=== PATIENT | female | born 1995 | race Caucasian/White ===

== ENCOUNTER 2018-08-05 15:15 | Outpatient (RCR) | payer BC ==
[~2018-08-05 15:15] MED LIST: DUO-KAPS1 CAP PO; FLEXERIL 1010 MG/TAB PO; LORTAB 5/500 501 TAB PO; NAPROSYN500 MG PO
== END 2018-08-24 | disposition home or self-care (01) ==
LOC: MKS.ESL.PT
DX: N94.11 Superficial (introital) dyspareunia (principal)